=== PATIENT | female | born 1950 | race Caucasian/White ===

== ENCOUNTER → 2017-06-22 | Outpatient (CLI) | payer MEDICARE ==
[~2017-06-22] MED LIST: OMNIPAQUE 350 MG/ML, 75ML BOTTLE ONE
== END | disposition home or self-care (01) ==
LOC: CFH 14:11
PROVIDERS: ATTEND Registered Nurse
DX: G43.909 Migraine, unspecified, not intractable, without status migrainosus (principal)
CPT/HCPCS: 70470; 82565; Q9967

== ENCOUNTER → 2018-01-17 | Outpatient (CLI) | payer MEDICARE ==
[~2018-01-17] MED LIST changes: +OMNIPAQUE 350 MG/ML, 100ML BOTTLE ONE; -OMNIPAQUE 350 MG/ML, 75ML BOTTLE ONE
[2018-01-17 13:33] LABS: CREATININE 0.67 mg/dL (0.55-1.02)
== END | disposition home or self-care (01) ==
LOC: RAD 12:51
PROVIDERS: ATTEND Nurse Practitioner Primary Care
DX: M47.892 Other spondylosis, cervical region (principal)
CPT/HCPCS: 36415; 70491; 82565; Q9967

== ENCOUNTER → 2018-02-06 | Outpatient (CLI) | payer MEDICARE | END | disposition home or self-care (01) | LOC: RAD 12:15 | PROVIDERS: ATTEND Surgery | DX: R59.1 Generalized enlarged lymph nodes (principal) | CPT/HCPCS: 38505; 76942; 88173 ==

== ENCOUNTER 2018-06-01 13:25 | Outpatient (CLI) | payer MEDICARE ==
[~2018-06-01 13:25] MED LIST changes: +LIDOCAINE-MPF 1%, 5ML ONE; -OMNIPAQUE 350 MG/ML, 100ML BOTTLE ONE
== END 2018-06-01 23:59 | disposition home or self-care (01) ==
LOC: RAD 13:25
PROVIDERS: ATTEND Surgery
DX: E04.1 Nontoxic single thyroid nodule (principal); R59.1 Generalized enlarged lymph nodes
CPT/HCPCS: 10005; 38505; 76942; 88173; 88305

== ENCOUNTER → 2018-07-26 | Outpatient (CLI) | payer MEDICARE | END | disposition home or self-care (01) | LOC: CFH 10:36 | DX: Z12.31 Encounter for screening mammogram for malignant neoplasm of breast (principal); Z13.820 Encounter for screening for osteoporosis; M85.88 Other specified disorders of bone density and structure, other site; N95.9 Unspecified menopausal and perimenopausal disorder | CPT/HCPCS: 77063; 77080; 77067 ==